=== PATIENT | male | born 1965 | race Caucasian/White ===

== ENCOUNTER 2018-03-05 17:58 | Emergency (ER) | payer OTHER ==
[~2018-03-05] VITALS: Wt 108.5 kg
[2018-03-05] MEDS ORDERED: SOD CHLORIDE 0.9% 500 ML IV STA (18:49)
[2018-03-05] MEDS ORDERED: BELLADONNA/PHENOBARBITAL TAB PO STA (18:49)
[2018-03-05] MEDS ORDERED: LIDOCAINE/MYLANTA 40 ML BTL PO STA (18:49)
[2018-03-05] MEDS ORDERED: KETOROLAC 15 MG INJ IV STA (18:49)
--- NOTE | 2018-03-05 18:55 | ERD ---
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 He states the pains have been increasing in intensity and frequency and then got really bad prior to arrival. He states the chest and back pain is nonexertional and nonradiating and feels like a "charley horse". He also states he was diagnosed with walking pneumonia last week and prescribed azithromycin, his last dose of azithromycin will be complete tomorrow. He states last week a chest x-ray was not performed to diagnose his pneumonia he denies recent fevers or chills, no vomiting, no headache or blurry vision, no dizziness or loss of consciousness. Patient also states he has a history of IBS and has intermittent loose stools. (RUSLAN HAMMER MD) ROS All systems reviewed and are negative except as per history of present illness. (RUSLAN HAMMER MD) Medications Home Meds Active Scripts Naproxen* (Naprosyn*) 500 Mg Tablet, 500 MG PO BID PRN for PAIN AND/OR INFLAMMATION, #30 TAB Prov:RUSLAN HAMMER MD 03/05/18 Allergies Allergies: Coded Allergies: No Known Allergy (Unverified , 03/05/18) PMhx/Soc IBS, anxiety, hypertension (RUSLAN HAMMER MD) FmHx Family History: No diabetes (RUSLAN HAMMER MD) Physical Exam Vitals Vital Signs Date Temp Pulse Resp B/P (MAP) Pulse Ox O2 O2 Flow FiO2 Time Delivery Rate 03/05/18 76 14 110/52 97 Room Air 21:15 (71) 03/05/18 90 15 105/68 97 Room Air 19:15 (80) 03/05/18 99 14 124/85 97 Room Air 18:40 (98) 03/05/18 97.4 100 20 121/63 97 18:00 (82) (MOODY SZYMANSKI DO) Physical Exam GENERAL: Well-developed, well-nourished, well-hydrated, appears anxious, afebrile HEENT: Moist mucous membranes, pink conjunctiva, no cervical spine tenderness or step-off deformities, no goiter, no jaundice or icterus, extraocular movements intact without pain. No submandibular induration, and no pharyngeal erythema NEURO: Alert and oriented 3, cranial nerves II through XII intact bilaterally, pupils equal round reactive to light, no focal deficits or facial asymmetry, sensation intact distally Strength 5/5 in upper and lower extremities bilaterally CARDIAC: Regular rate and rhythm, no murmurs rubs or gallops LUNGS: Clear bilaterally no wheezing crackles or stridor ABDOMEN: Soft nontender, no guarding, no rigidity, no rebound, no psoas sign no obturator sign. Normoactive bowel sounds SKIN: Warm and dry to touch, no abrasions, contusions, or hematomas, no lacerations, no ecchymosis, no target lesions, and without ulcers EXTREMITIES: No clubbing cyanosis or edema, calves are bilaterally symmetrical, no Homans sign, no popliteal cord sign. Distal pulses equal and bilateral PSYCH: Anxious (RUSLAN HAMMER MD) Result Diagram: 03/05/18191103/05/181911 Results 24 hrs Laboratory Tests Test 03/05/18 19:12 White Blood Count 7.8 10^3/ul Red Blood Count 6.17 10^6/ul Hemoglobin 17.7 g/dl Hematocrit 52.6 % Mean Corpuscular Volume 85.3 fl Mean Corpuscular Hemoglobin 28.7 pg Mean Corpuscular Hemoglobin Concent 33.7 g/dl Red Cell Distribution Width 12.9 % Platelet Count 343 10^3/UL Mean Platelet Volume 10.7 fl Immature Granulocytes % 0.300 % Neutrophils % 65.4 % Lymphocytes % 15.8 % Monocytes % 12.2 % Eosinophils % 4.8 % Basophils % 1.5 % Nucleated Red Blood Cells % 0.0 /100WBC Immature Granulocytes # 0.020 10^3/ul Neutrophils # 5.1 10^3/ul Lymphocytes # 1.2 10^3/ul Monocytes # 1.0 10^3/ul Eosinophils # 0.4 10^3/ul Basophils # 0.1 10^3/ul Nucleated Red Blood Cells # 0.0 10^3/ul Sodium Level 142 mmol/L Potassium Level 4.9 mmol/L Chloride Level 97 mmol/L Carbon Dioxide Level 30 mmol/L Anion Gap 15 Blood Urea Nitrogen 23 mg/dl Creatinine 0.89 mg/dl Est Glomerular Filtrat Rate mL/min > 60 mL/min Glucose Level 184 mg/dl Calcium Level 10.8 mg/dl Total Bilirubin 0.2 mg/dl Direct Bilirubin 0.00 mg/dl Indirect Bilirubin 0.2 mg/dl Aspartate Amino Transf (AST/SGOT) 105 IU/L Alanine Aminotransferase (ALT/SGPT) 104 IU/L Alkaline Phosphatase 89 IU/L Troponin I < 0.012 ng/ml Total Protein 7.7 g/dl Albumin 4.9 g/dl Globulin 2.80 g/dl Albumin/Globulin Ratio 1.75 Lipase 492 U/L Current Medications Medications Dose Sig/Fabien Start Time Status Last (Trade) Ordered Route PRN Stop Time Admin Dose Reason Admin Sodium 500 ml @ Q1H STAT 03/05/18 DC 03/05/18 Chloride 500 mls/hr IV 18:49 03/05/18 19:04 19:48 40 ml ONCE STAT 03/05/18 DC 03/05/18 Miscellaneous PO 18:49 03/05/18 19:03 Medication 18:50 (Gi Cocktail (2)) Belladonna/ 2 tab ONCE STAT 03/05/18 DC 03/05/18 Phenobarbital PO 18:49 03/05/18 19:03 () 18:50 Ketorolac 15 mg ONCE STAT 03/05/18 DC 03/05/18 Tromethamine IV 18:49 03/05/18 19:03 (Toradol) 18:50 (ANSELMO SZYMANSKIS A. DO) Procedures/MDM IV line was established patient was placed on school lunch monitor rhythm strip revealed a sinus rhythm at about 80 bpm with upright P and T waves. Patient was afebrile Chest X-ray 1V Interpreted by me: Soft Tissue: No acute abnormalities Bones: No acute abnormalities Mediastinum/Cardiac Silhouette/Lungs: No acute abnormalities EKG performed, read by me revealed a normal sinus rhythm at 94 bpm, normal axis, narrow QRS complex, no concerning ST elevations or depressions noted. I administered 500 cc normal saline IV, Toradol 50 mg IV, GI cocktail p.o. CBC and electrolytes were normal, liver function tests were normal, troponin was negative. Patient states his symptoms began to improve shortly after ED arrival and then resolved after above therapy. He has had these symptoms for the last week so it is highly unlikely to be cardiac in etiology given today's workup and negative troponin. I also doubt he truly had a pneumonia but he is on his last day of azithromycin and I recommend that he continue as prescribed. Differential diagnoses considered, included but not limited to acute coronary syndrome, pulmonary embolism, aortic dissection, abdominal aortic aneurysm, sepsis, stroke, meningitis, encephalitis, pneumonia, appendicitis, cholecystitis, bowel obstruction, pyelonephritis, nephrolithiasis, cystitis, as well as metabolic, hematologic, and electrolyte abnormalities. As well as abscess, cellulitis, fractures, and dislocations. Patient feels much better at this time, and vital signs are normal, symptoms have improved. I did give strict instructions to return to the ED if symptoms continue or worsen, patient will otherwise follow-up with primary care physician. Patient understood instructions and agreed to plan. Disclaimer: Inadvertent spelling and grammatical errors are likely due to EHR/dictation software use and do not reflect on the overall quality of patient care. Also, please note that the electronic time recorded on this note does not necessarily reflect the actual time of the patient encounter. (RUSLAN HAMMER MD) Because the patient's labs were slightly elevated liver function and lipase a gallbladder ultrasound was obtained which is unremarkable Patient: ERICA MARTINEZ : 1965 Age: 52 Sex: M MR #: [id number] DOS: 03/05/182020 Ordering MD: MOODY SZYMANSKI DO Location: E/R Room/Bed: PROCEDURE: US Abdomen. CLINICAL INDICATION: Abdominal pain. TECHNIQUE: Multiple real-time images were acquired of the patient's abdomen and retroperitoneum utilizing a high resolution transducer with Doppler interrogation. Images were reviewed on a PACS workstation COMPARISON: None available FINDINGS: The examination is limited due to patient body habitus as well as overlying bowel gas. The liver demonstrates mild enlargement in size, measuring 16.0 cm. There is a benign right hepatic lobe cyst measuring 1.4 cm with expected posterior acoustic enhancement, benign in appearance. There is diffuse heterogeneous hyperechoic echotexture consistent with moderate fatty infiltration. The liver capsule margins are smooth without evidence of nodularity. There is no intrahepatic biliary ductal dilatation or masses. The portal vein demonstrates normal hepatopetal flow. The gallbladder is adequately distended without evidence of gallstones, wall thickening or pericholecystic fluid. The sonographic John sign is absent. No intra or extrahepatic biliary dilatation is seen. The common bile duct measures 5.3 mm in maximal dimension. The visualized portions of the pancreas are unremarkable. No free fluid is identified. The right kidney is normal size, and demonstrates normal echogenicity and morphology. The right kidney measures 11.4 cm in long dimension. There is no dilatation of the pelvicaliceal system. There are no perinephric fluid collections. There are no areas of increased echogenicity to suggest nephrolithiasis. The visualized portions of the aorta are normal in appearance. IMPRESSION: 1. Hepatomegaly with moderate fatty infiltration. 2. Benign 1.4 cm simple cyst in the right hepatic lobe. 3. Otherwise, normal sonographic findings of the abdomen. No evidence of gallstones or cholecystitis. RPTAT: HGAS .Chase Chua MD, Date Time Electronically viewed and signed by .Chase Chua MD, MD on 03/05/2018 22:16 .S/ CC: MOODY SZYMANSKI DO [id number] Patient was stating to the nurses pain is not really chest pain but more localized around the upper abdomen Patient be discharged home with Dr. Donato discharge papers (MOODY SZYMANSKI DO) Departure Diagnosis: Primary Impression: Chest pain Chest pain type: unspecified Qualified Codes: R07.9 - Chest pain, unspecified Condition: RUSLAN Disla MD Mar 05, 2018 18:55 MOODY SZYMANSKI DO Mar 05, 2018 22:57
[2018-03-05] MEDS ORDERED: NAPR-985 PO (19:37)
[2018-03-05 23:08] VITALS: BP 110/82; PULSE 77; RESP 16
== END 2018-03-06 00:01 | disposition home or self-care (01) ==
LOC: E/R 17:58
DX: R07.9 Chest pain, unspecified (principal)
CPT/HCPCS: 36415; 71045; 76705; 80053; 83690; 84484; 85025; 93005; 96374; J1885; J7040; Z7502; Z7610